=== PATIENT | male | born 1935 | race Caucasian/White ===

== ENCOUNTER 2020-02-19 12:03 | Outpatient (CLI) | payer MEDICARE ==
--- NOTE | 2020-02-19 13:38 | RAD ---
SACRUM AND COCCYX: 02/19/20 Three VIEWS. HISTORY: Sacrococcygeal pain. No evidence of sacrum or coccyx fracture. SI joints appear symmetric with mild degenerative sclerosis . Degenerative changes at both hips. 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 No acute abnormality. POS: [facility]
== END 2020-02-19 12:04 | disposition home or self-care (01) ==
LOC: BICRAD 12:03
PROVIDERS: ATTEND Internal Medicine Gastroenterology
DX: M53.3 Sacrococcygeal disorders, not elsewhere classified (principal)
CPT/HCPCS: 72220